=== PATIENT | male | born 1955 | race Caucasian/White ===

== ENCOUNTER 2022-01-12 01:55 | Emergency (ER) | payer MEDICARE, OTHER ==
[~2022-01-12] VITALS: Ht 182.9 cm; Wt 110.0 kg
[2022-01-12 02:04] VITALS: TEMP 98.8
[2022-01-12] MEDS ORDERED: FARXIGA10 PO (02:07)
[2022-01-12] MEDS ORDERED: OZEMPIC0.25 MG/0. SQ (02:07)
[2022-01-12] MEDS ORDERED: CELEXA 20MG20 MG/TAB (02:08)
[2022-01-12] MEDS ORDERED: GLUCOPHAGE1000 MG PO (02:08)
[2022-01-12] MEDS ORDERED: BASAGLAR K100 UNIT/1 SQ (02:08)
[2022-01-12 02:37] LABS: BASO % 0.6 % (0.0-2.0); EOS # 0.1 K/mm3 (0.0-0.7); EOS % 2.2 % (0.0-4.0); GRAN # 3.7 K/mm3 (1.4-6.5); GRAN % 59.1 % (42.2-75.2); HEMATOCRIT 47.4 % (42.0-52.0); HEMOGLOBIN 15.7 g/dl (13.5-18.0); LYMPH # 1.6 K/mm3 (1.2-3.4); LYMPH % 24.6 % (20.0-51.0); MEAN CELL VOLUME 93 fl (80.0-100.0); MEAN CORPUSCULAR HEMOGLOBIN 31 pg (27-31); MEAN CORPUSCULAR HGB CONC 33 g/dl (33.0-37.0); MEAN PLATELET VOLUME 8.1 fl (7.4-10.4); MONO # 0.8 K/mm3 (0.1-0.6); MONO % 13.2 % (1.7-9.3); PLATELET COUNT 273 K/mm3 (130-400); RED BLOOD COUNT 5.12 M/mm3 (4.20-5.60); REDCELL DISTRIBUTION WIDTH-CV 14.3 % (11.5-14.5)
[2022-01-12 02:54] LABS: BILIRUBIN,TOTAL 0.6 mg/dL (0.2-1.2); CALCIUM 10.1 mg/dL (8.4-10.2); CREATININE, serum 1.63 mg/dL (0.72-1.25); POTASSIUM 4.3 mmol/L (3.5-4.5); TOTAL PROTEIN 7.9 gm/dL (6.2-8.1)
[2022-01-12 03:44] LABS: LIPASE 16 U/L (8-78)
[2022-01-12 03:51] LABS: TROPONIN-I < 0.010 ng/mL (0.00-0.033)
[2022-01-12 05:04] VITALS: BP 139/85; PULSE 91
== END 2022-01-12 05:09 | disposition home or self-care (01) ==
LOC: COL.ER 01:55
PROVIDERS: Personal Emergency Response Attendant
DX: E11.649 Type 2 diabetes mellitus with hypoglycemia without coma (principal); N28.9 Disorder of kidney and ureter, unspecified; Z79.4 Long term (current) use of insulin; Z79.84 Long term (current) use of oral hypoglycemic drugs
CPT/HCPCS: J2060; J7030; Q9967